=== PATIENT | female | born 1960 | race Asian ===

== ENCOUNTER → 2017-03-15 | Outpatient (CLI) | payer MEDICAID | END | disposition home or self-care (01) | LOC: CFH 08:40 | PROVIDERS: ATTEND Family Medicine | DX: Z12.31 Encounter for screening mammogram for malignant neoplasm of breast (principal) | CPT/HCPCS: G0202 ==

== ENCOUNTER → 2017-03-21 | Outpatient (CLI) | payer MEDICAID | END | disposition home or self-care (01) | LOC: CFH 10:18 | PROVIDERS: ATTEND Family Medicine | DX: R05 Cough (principal) | CPT/HCPCS: 71020 ==

== ENCOUNTER 2017-05-18 13:27 | Emergency (ER) | payer MEDICAID, OTHER ==
[~2017-05-18] VITALS: Ht 154.9 cm; Wt 68.0 kg
[2017-05-18 13:32] VITALS: BP 153/91
== END 2017-05-18 15:11 | disposition home or self-care (01) ==
LOC: ED 14:59
DX: S16.1XXA Strain of muscle, fascia and tendon at neck level, initial encounter (principal); S43.402A Unspecified sprain of left shoulder joint, initial encounter; S73.101A Unspecified sprain of right hip, initial encounter; I10 Essential (primary) hypertension; V43.51XA Car driver injured in collision with sport utility vehicle in traffic accident, initial encounter; Y93.89 Activity, other specified; Y92.89 Other specified places as the place of occurrence of the external cause; Y99.8 Other external cause status
CPT/HCPCS: 72020; 72050; 99284

== ENCOUNTER → 2017-08-21 | Outpatient (CLI) | payer MEDICAID | LOC: CFH 13:15 | PROVIDERS: ATTEND Family Medicine | DX: Z02.9 Encounter for administrative examinations, unspecified (principal) ==

== ENCOUNTER → 2021-03-03 | Outpatient (CLI) | payer MEDICAID | END | disposition home or self-care (01) | LOC: CFH 12:19 | PROVIDERS: ATTEND Family Medicine | DX: N60.01 Solitary cyst of right breast (principal); N64.4 Mastodynia | CPT/HCPCS: 76642; 77062; 77066; G0279 ==

== ENCOUNTER 2021-07-23 12:08 | Emergency (ER) | payer MEDICAID ==
[~2021-07-23] VITALS: Ht 154.9 cm; Wt 65.9 kg
[2021-07-23 12:22] VITALS: BP 166/76
--- NOTE | 2021-07-23 12:49 | NUR ---
C COLLAR PLACED ON PT
[2021-07-23] MEDS ORDERED: IBUPROFEN 600 MG TABLET ONE (12:53)
[2021-07-23] MEDS ORDERED: IBUPROFEN 200 MG TABLET PO ONE (13:00)
== END 2021-07-23 15:29 | disposition home or self-care (01) ==
LOC: ED 15:27
DX: S16.1XXA Strain of muscle, fascia and tendon at neck level, initial encounter (principal); S43.401A Unspecified sprain of right shoulder joint, initial encounter; M75.31 Calcific tendinitis of right shoulder; I10 Essential (primary) hypertension; E11.9 Type 2 diabetes mellitus without complications; M19.90 Unspecified osteoarthritis, unspecified site; V43.03XA Car driver injured in collision with pick-up truck in nontraffic accident, initial encounter; Y93.89 Activity, other specified; Y92.410 Unspecified street and highway as the place of occurrence of the external cause; Y99.8 Other external cause status
CPT/HCPCS: 72020; 72050; 99284